=== PATIENT | male | born 1990 | race American Indian/Alaskan Native ===

== ENCOUNTER 2020-11-26 13:19 | Emergency (ER) | payer OTHER ==
[2020-11-26 13:25] VITALS: BP 126/80
--- NOTE | 2020-11-26 13:50 | Emergency Department Report ---
Minor Respiratory - HPI Chief Complaint: Upper Respiratory Infection Stated Complaint: DRY COUGH/HEADACHE/CHEST PAIN Time Seen by Provider: 11/26/20 13:32 Duration: Years Pain Location: Chest Minor Respiratory: Yes Cough, No Rhinorrhea, No Sore Throat, No Able to Tolerate Fluids, No Ear Pain, No Sick Contacts, No Hemoptysis, No Chest Pain, No Shortness of Breath, No Fever Other History: 30-year-old -[place] male presents to the emergency room complaining of a cough that he has had for years that is intermittent and is comes and goes for the last few months has gotten worse. Patient states last night he started coughing and had some chest discomfort. Patient states that he tasted blood when he coughed and he will get a headache when he coughs. Patient also reports nausea when he coughs. Denies any vomiting no weight loss no runny nose no postnasal drip. Patient reports he had a negative Covid test last week. He has never been seen for this. Does not have a primary care provider. Denies any alcohol use no cigarette use no marijuana use. Reports he has no known drug allergies currently takes no medications on a daily basis and only has a past medical history of chronic cough. ED Review of Systems ROS: Stated complaint: DRY COUGH/HEADACHE/CHEST PAIN Other details as noted in HPI Comment: All other systems reviewed and negative ED Past Medical Hx - Past Medical History Previous Medical History?: No - Surgical History Past Surgical History?: No Minor Respiratory Exam - Exam General: Vital signs noted. No distress. Alert and acting appropriately. HEENT: Yes Moist Mucous Membranes, No Rhinorrhea Neck: Yes Supple, No Adenopathy Lungs: Yes Good Air Exchange, No Wheezes, No Ronchi, No Stridor, No Cough, No Labored Respirations, No Retractions, No Use of Accessory Muscles, No Other Abnormal Lung Sounds Heart: Yes Regular, No Murmur Abdomen: Yes Normal Bowel Sounds, No Tenderness, No Peritoneal Signs Skin: No Rash, No Edema Neurologic: Alert and oriented, no deficits. Musculoskeletal: Unremarkable. ED Course Vital Signs 11/26/20 13:22 Temperature 98.7 F Pulse Rate 95 H Respiratory 16 Rate Blood Pressure 126/80 [Left] O2 Sat by Pulse 95 Oximetry ED Medical Decision Making - Radiology Data Radiology results: report reviewed [facility] [address] [place] [address] XRay Report Signed Patient: CHASITY BENTLEY MR#: [id number] : 1990 Acct:[id number] Age/Sex: 30 / M ADM Date: 11/26/20 Loc: ED Attending Dr: Ordering Physician: MIREYA BERNSTEIN Date of Service: 11/26/20 Procedure(s): XR chest routine 2V Accession Number(s): [id number] cc: MIREYA BERNSTEIN Fluoro Time In Minutes: CHEST 2 VIEWS INDICATION / CLINICAL INFORMATION: cough. COMPARISON: None available. FINDINGS: SUPPORT DEVICES: None. HEART / MEDIASTINUM: No significant abnormality. LUNGS / PLEURA: No significant pulmonary or pleural abnormality. No pneumothorax. ADDITIONAL FINDINGS: No significant additional findings. IMPRESSION: 1. No acute findings. Signer Name: Kenny Sweet DO Signed: 11/26/2020 3:15 PM Workstation Name: [id number] Transcribed By: MARY Dictated By: KENNY SWEET DO Electronically Authenticated By: KENNY SWEET DO Signed Date/Time: 11/26/201514 DD/ 14 TD/TT: Print Cancel - Medical Decision Making 30-year-old -[place] male presents to the emergency room complaining of a cough that he has had for years that is intermittent and is comes and goes for the last few months has gotten worse. Patient states last night he started coughing and had some chest discomfort. Patient states that he tasted blood when he coughed and he will get a headache when he coughs. Patient also reports nausea when he coughs. Denies any vomiting no weight loss no runny nose no postnasal drip. Patient reports he had a negative Covid test last week. He has never been seen for this. Does not have a primary care provider. Denies any alcohol use no cigarette use no marijuana use. Reports he has no known drug allergies currently takes no medications on a daily basis and only has a past medical history of chronic cough. Chest x-ray ordered. Critical care attestation.: If time is entered above; I have spent that time in minutes in the direct care of this critically ill patient, excluding procedure time. ED Disposition Clinical Impression: Chronic cough Disposition: HOME / SELF CARE / HOMELESS Is pt being admited?: No Does the pt Need Aspirin: No Condition: Stable Instructions: Cough, Adult, [id number] Additional Instructions: Chest x-ray is negative for any acute findings. Vital signs are stable no signs of hypoxia or low level of oxygen. Examinations within normal limits. I recommended she follow-up with a primary care provider. Referrals: PRIMARY MD LORA [Primary Care Provider] - 3-5 Days RENÉ QUISPE MD [Staff Physician] - 3-5 Days Forms: Work/School Release Form(ED)
--- NOTE | 2020-11-26 15:19 | XRay Report ---
CHEST 2 VIEWS INDICATION / CLINICAL INFORMATION: cough. COMPARISON: None available. FINDINGS: SUPPORT DEVICES: None. HEART / MEDIASTINUM: No significant abnormality. LUNGS / PLEURA: No significant pulmonary or pleural abnormality. No pneumothorax. ADDITIONAL FINDINGS: No significant additional findings. IMPRESSION: 1. No acute findings. Signer Name: Kenny Forrester DO Signed: 11/26/2020 3:15 PM Workstation Name: [id number]
== END 2020-11-26 16:19 | disposition home or self-care (01) ==
LOC: ED 13:19
DX: R05.3 Chronic cough (principal)
CPT/HCPCS: 71046; 99283